=== PATIENT | male | born 1985 | race Caucasian/White ===

== ENCOUNTER 2021-04-16 03:27 | Emergency (ER) | payer MEDICAID ==
--- NOTE | 2021-04-16 04:36 | EDM.PDOC ---
ED HPI GENERAL MEDICAL PROBLEM - General Chief Complaint: Lower Extremity Injury/Pain Stated Complaint: LEFT FOOT PAIN Time Seen by Provider: 04/16/21 04:09 Source of Information: Reports: Patient History Limitations: Reports: No Limitations - History of Present Illness INITIAL COMMENTS - FREE TEXT/NARRATIVE: 35-year-old male presenting to the ED with left great toe pain after he inadvertently kicked the leg of the sofa this evening. The injury occurred about 8 hours ago. The patient is already being seen by Dr. Houston for bilateral calcaneal fractures. - Related Data Allergies Allergy/AdvReac Type Severity Reaction Status Date / Time No Known Allergies Allergy Verified 04/16/21 04:03 Home Meds: Home Meds Acetaminophen [Tylenol Extra Strength] 1,000 mg PO Q6H PRN 12/01/13 [History] Ibuprofen [Motrin] 400 mg PO QID PRN 12/01/13 [History] Lisdexamfetamine [Vyvanse] 50 mg PO DAILY 12/01/13 [History] Past Medical History Musculoskeletal History: Reports: Fracture Social & Family History - Tobacco Use Tobacco Use Status *Q: Current Every Day Tobacco User Years of Tobacco use: 10 Packs/Tins Daily: 0 - Caffeine Use Caffeine Use: Reports: Energy Drinks - Recreational Drug Use Recreational Drug Use: No Review of Systems - Review of Systems Review Of Systems: See Below Constitutional: Reports: No Symptoms Musculoskeletal: Reports: Foot Pain (left great toe) ED EXAM, GENERAL - Physical Exam Exam: See Below Exam Limited By: No Limitations General Appearance: Alert, No Apparent Distress Extremities: Joint Swelling (Mild swelling of the left great toe), Limited Range of Motion (Pain with movement of the left great toe) Neurological: Alert, Oriented, Normal Cognition, No Motor/Sensory Deficits Course - Vital Signs Last Recorded V/S: Last Vital Signs Temp 36.5 C 04/16/21 04:09 Pulse 105 H 04/16/21 04:09 Resp 16 04/16/21 04:09 BP 136/95 H 04/16/21 04:09 Pulse Ox 96 04/16/21 04:09 - Orders/Labs/Meds Orders: Active Orders 24 hr Category Date Time Status Toes Great Toe Lt TA [CR] Stat Exams 04/16/21 04:10 Taken - Radiology Interpretation Free Text/Narrative:: The three-view left great toe x-ray showing an nondisplaced intra-articular distal phalanx fracture. - Re-Assessments/Exams Free Text/Narrative Re-Assessment/Exam: 04/16/21 05:10 put the patient in a orthopedic postoperative shoe to protect the toe and the patient should follow-up with Dr. Houston who he already is seen for his bilateral calcaneal fractures. Departure - Departure Time of Disposition: 05:03 Disposition: Home, Self-Care 01 Clinical Impression: Closed fracture of phalanx of left great toe Qualifiers: Encounter type: initial encounter Phalanx: distal Fracture alignment: nondisplaced Qualified Code(s): S92.425A - Nondisplaced fracture of distal phalanx of left great toe, initial encounter for closed fracture - Discharge Information Instructions: Toe Fracture, [id number] Referrals: PCP,None [Primary Care Provider] - Forms: ED Department Discharge Care Plan Goals: Wear the orthopedic shoe to protect the toe for the next 2 to 3 weeks. Follow- up with Dr. Houston for further management of the toe fracture. You may take Tylenol for pain control. Sepsis Event Note (ED) - Evaluation Sepsis Screening Result: No Definite Risk - Focused Exam Vital Signs: Vital Signs Temp Pulse Resp BP Pulse Ox 04/16/21 04:09 36.5 C 105 H 16 136/95 H 96 - Problem List & Annotations (1) Closed fracture of phalanx of left great toe SNOMED Code(s): 982014955, [id number] Code(s): S92.402A - DISPLACED UNSP FRACTURE OF LEFT GREAT TOE, INIT FOR CLOS FX Status: Acute Priority: Low Current Visit: Yes Qualifiers: Encounter type: initial encounter Phalanx: distal Fracture alignment: nondisplaced Qualified Code(s): S92.425A - Nondisplaced fracture of distal phalanx of left great toe, initial encounter for closed fracture - Problem List Review Problem List Initiated/Reviewed/Updated: Yes - My Orders Last 24 Hours: My Active Orders 04/16/21 04:10 Toes Great Toe Lt TA [CR] Stat - Assessment/Plan Last 24 Hours: My Active Orders 04/16/21 04:10 Toes Great Toe Lt TA [CR] Stat
--- NOTE | 2021-04-18 09:42 | CR ---
Toes Great Toe Lt TA CLINICAL HISTORY: Trauma FINDINGS: There is a transverse fracture through the base of the first distal phalanx IMPRESSION: Fracture Big Toe
== END 2021-04-16 05:34 | disposition home or self-care (01) ==
LOC: JP.ED 03:27
DX: S92.425A Nondisplaced fracture of distal phalanx of left great toe, initial encounter for closed fracture (principal); F17.210 Nicotine dependence, cigarettes, uncomplicated; Z79.899 Other long term (current) drug therapy; X58.XXXA Exposure to other specified factors, initial encounter
CPT/HCPCS: 73660-26-TA; 73660-TA; 99283

== ENCOUNTER 2022-07-22 20:50 | Emergency (ER) | payer MEDICAID | END 2022-07-22 21:33 | disposition home or self-care (01) | LOC: JP.ED 20:50 | DX: M70.22 Olecranon bursitis, left elbow (principal); I10 Essential (primary) hypertension; Z72.0 Tobacco use | CPT/HCPCS: 99282; 99283 ==

== ENCOUNTER 2024-03-10 18:48 | Emergency (ER) | payer MEDICAID ==
[2024-03-10 20:29] LABS: AMPHETAMINES SCREEN, URINE NEGATIVE (NEGATIVE); BARBITURATE SCREEN,URINE NEGATIVE (NEGATIVE); BENZODIAZEPINES SCREEN,URINE NEGATIVE (NEGATIVE); METHADONE SCREEN, URINE NEGATIVE (NEGATIVE); METHAMPHETAMINES SCREEN, URINE NEGATIVE (NEGATIVE); OXYCODONE SCREEN,URINE NEGATIVE (NEGATIVE); PROPOXYPHENE SCREEN,URINE NEGATIVE (NEGATIVE); THC SCREEN,URINE 50 NG/ML NEGATIVE (NEGATIVE)
== END 2024-03-10 20:32 ==
LOC: JP.ED 18:48
DX: F10.120 Alcohol abuse with intoxication, uncomplicated (principal); I10 Essential (primary) hypertension
CPT/HCPCS: 80305-QW; 99284